=== PATIENT | male | born 1970 | race Caucasian/White ===

== ENCOUNTER 2017-08-18 18:33 | Emergency (ER) | payer SELFPAY ==
[~2017-08-18] VITALS: Ht 170.2 cm; Wt 95.3 kg
[2017-08-18 18:44] VITALS: BP_SYST 156
[2017-08-18] MEDS ORDERED: DIPH-TET-PERTUS Vaccine 0.5 ML VIAL (ADACEL) I.M. ONE (20:15)
[2017-08-18] MEDS ORDERED: IBUPROFEN 800 MG TABLET PO ONE (20:30)
[2017-08-18 20:35] VITALS: BP_SYST 135
== END 2017-08-18 20:35 | disposition home or self-care (01) ==
LOC: SED 18:33
DX: S70.312A Abrasion, left thigh, initial encounter (principal); Z88.0 Allergy status to penicillin; W18.39XA Other fall on same level, initial encounter; Y93.89 Activity, other specified; Y92.89 Other specified places as the place of occurrence of the external cause; Y99.8 Other external cause status
CPT/HCPCS: 90715; 99283